=== PATIENT | female | born 1955 | race Caucasian/White ===

== ENCOUNTER 2017-07-14 06:43 | Day surgery (SDC) | payer BC ==
[2017-07-14] MEDS ORDERED: NS 500 ML IV 500 ML IV ONE (06:58)
[2017-07-14] MEDS ORDERED: TETRACAINE 0.5% OPHTH 1 DOSE AFFEYE ONE ×2 (07:15→09:47)
[2017-07-14] MEDS ORDERED: DUREZOL OPHTH 1 DOSE AFFEYE ONE (07:15)
[2017-07-14] MEDS ORDERED: VIGAMOX 0.5% OPHTH 1 DOSE AFFEYE ONE ×5 (07:16→10:22)
[2017-07-14] MEDS ORDERED: PROLENSA OPHTH 1 DOSE AFFEYE ONE (07:27)
[2017-07-14] MEDS ORDERED: ALPHAGAN-P OPHTH 1 DOSE AFFEYE ONE (07:28)
[2017-07-14] MEDS ORDERED: VISINE-A OPHTH 1 DOSE AFFEYE ONE (07:29)
[2017-07-14] MEDS ORDERED: AK-DILATE 2.5% OPHTH 1 DOSE OP ONE ×3 (07:30→07:34)
[2017-07-14] MEDS ORDERED: MYDRIACIL OPHTH 1 DOSE AFFEYE ONE ×3 (07:30→07:34)
[2017-07-14] MEDS ORDERED: CYCLOGYL 1% OPHTH 1 DOSE OP ONE ×3 (07:30→07:34)
[2017-07-14] MEDS ORDERED: BETADINE OPHTH SOLN 5% EACHEYE ONE (09:47)
[2017-07-14] MEDS ORDERED: XYLOCAINE-MPF 1% IJ ONE ×2 (09:52→10:11)
[2017-07-14] MEDS ORDERED: ADRENALINE CHL INJ IJ ONE ×2 (09:52→10:11)
[2017-07-14] MEDS ORDERED: DUOVISC IO ONE ×2 (09:52→10:11)
[2017-07-14] MEDS ORDERED: BSS OPHTH (PLAIN) 500 ML with VANCOMYCIN HCL 500 MG VIAL 25 MG, ADRENALINE CHL INJ 1 MG IR ONE ×6 (09:59)
[2017-07-14 10:58] VITALS: BP 132/76
[2017-07-14] MEDS ORDERED: DIPRIVAN VIAL ONE (15:41)
== END 2017-07-14 10:46 | disposition home or self-care (01) ==
LOC: SURG1 06:43
PROVIDERS: ATTEND Ophthalmology
PROC: 08DJ3ZZ Extraction of Right Lens, Percutaneous Approach (ICD-10-PCS; principal; 2017-07-14 10:30)
PROC: 08RJ3JZ Replacement of Right Lens with Synthetic Substitute, Percutaneous Approach (ICD-10-PCS; principal; 2017-07-14 10:30)
DX: H25.11 Age-related nuclear cataract, right eye (principal); H25.011 Cortical age-related cataract, right eye; H52.221 Regular astigmatism, right eye
CPT/HCPCS: A4217; J0170; J3370; J3490

== ENCOUNTER 2017-08-04 10:07 | Day surgery (SDC) | payer BC ==
[2017-08-04] MEDS ORDERED: NS 500 ML IV 500 ML IV ONE (11:32)
[2017-08-04] MEDS ORDERED: TETRACAINE 0.5% OPHTH 1 DOSE AFFEYE ONE ×2 (11:33→13:50)
[2017-08-04] MEDS ORDERED: VIGAMOX 0.5% OPHTH 1 DOSE AFFEYE ONE ×5 (11:35→14:16)
[2017-08-04] MEDS ORDERED: PROLENSA OPHTH 1 DOSE AFFEYE ONE (11:46)
[2017-08-04] MEDS ORDERED: ALPHAGAN-P OPHTH 1 DOSE AFFEYE ONE (11:48)
[2017-08-04] MEDS ORDERED: MYDRIACIL OPHTH 1 DOSE AFFEYE ONE ×4 (11:50→11:58)
[2017-08-04] MEDS ORDERED: CYCLOGYL 1% OPHTH 1 DOSE OP ONE ×4 (11:50→11:58)
[2017-08-04] MEDS ORDERED: AK-DILATE 2.5% OPHTH 1 DOSE OP ONE ×4 (11:50→11:58)
[2017-08-04] MEDS ORDERED: BETADINE OPHTH SOLN 5% EACHEYE ONE (13:49)
[2017-08-04] MEDS ORDERED: XYLOCAINE-MPF 1% IJ ONE ×2 (13:59→14:04)
[2017-08-04] MEDS ORDERED: DUOVISC IO ONE ×2 (13:59→14:04)
[2017-08-04] MEDS ORDERED: ADRENALINE CHL INJ IJ ONE ×2 (13:59→14:04)
[2017-08-04] MEDS ORDERED: BSS OPHTH (PLAIN) 500 ML with VANCOMYCIN HCL 500 MG VIAL 25 MG, ADRENALINE CHL INJ 1 MG IR ONE ×6 (14:00)
[2017-08-04 14:36] VITALS: BP 154/68
== END 2017-08-04 14:39 | disposition home or self-care (01) ==
LOC: SURG1 10:07
PROVIDERS: ATTEND Ophthalmology
PROC: 08DK3ZZ Extraction of Left Lens, Percutaneous Approach (ICD-10-PCS; principal; 2017-08-04 19:30)
PROC: 08RK3JZ Replacement of Left Lens with Synthetic Substitute, Percutaneous Approach (ICD-10-PCS; principal; 2017-08-04 19:30)
DX: H25.12 Age-related nuclear cataract, left eye (principal); H25.012 Cortical age-related cataract, left eye; H52.222 Regular astigmatism, left eye
CPT/HCPCS: A9270; A4217; J0170; J3370